=== PATIENT | male | born 1970 | race Caucasian/White ===

== ENCOUNTER 2025-07-04 07:20 | Outpatient (CLI) | payer OTHER, SELFPAY ==
[2025-07-04 14:22] LABS: Hemoglobin A1C 6.5 % (<5.7)
[2025-07-04 14:44] LABS: ALT 36 U/L (16-63); AST 17 U/L (15-37); Albumin 3.8 g/dL (3.4-5.0); Alkaline Phosphatase 64 U/L (46-116); Anion Gap 8.7 mmol/L (3-11); BUN 17 mg/dL (7-18); Bilirubin, Total 0.5 mg/dL (0.2-1.0); CO2 29.3 mmol/L (21.0-32.0); Calcium 9.1 mg/dL (8.5-10.1); Calculated LDL 122 mg/dL (<100); Chloride 104 mmol/L (98-107); Cholesterol 179 mg/dL (<200); Estimated GFR 79.28 (mL/min/1.73m2); Glucose 119 mg/dL (74-106); HDL Cholesterol 38 mg/dL (>or=40); Potassium 4.3 mmol/L (3.5-5.1); Sodium 142 mmol/L (136-145); Total Protein 7.5 g/dL (6.4-8.2); Triglyceride 96 mg/dL (<150); Vitamin D 25 Total 15 ng/mL (30-100)
[2025-07-05 10:56] LABS: PSA, Screening 0.7 ng/mL (<=3.5)
== END 2025-07-04 07:21 | disposition home or self-care (01) ==
LOC: LOS 07-05 07:20
PROVIDERS: PCP Nurse Practitioner Family; Visit Provider Nurse Practitioner Family
DX: Z13.1 Encounter for screening for diabetes mellitus (principal); Z13.220 Encounter for screening for lipoid disorders; Z12.5 Encounter for screening for malignant neoplasm of prostate; I10 Essential (primary) hypertension; E50.9 Vitamin A deficiency, unspecified
CPT/HCPCS: 36415; 80053; 80061; 82306; 84153; 83036

== ENCOUNTER 2025-09-14 08:23 | Day surgery (SDC) | payer OTHER, SELFPAY ==
[2025-09-14 08:44] VITALS: BP 134/99; PULSE 72; RESP 18; TEMP 36.1; O2SAT 96
[2025-09-14] MEDS: Lactated Ringers 1,000 ML 80 ML IV (09:08)
--- NOTE | 2025-09-14 09:33 | W.ANESPRE ---
General Info Date of Service Date Performed: 09/14/25 Height: 5 ft .25 in Weight: 144.9 kg Body Mass Index (BMI): 44.2 Surgical Procedure: Operation Date: 09/14/25 10:05 Proposed Procedure Side Surgeon ravindra Vasquez MD Meds Allergies and Home Medications Allergies Allergy/AdvReac Type Severity Reaction Status Date / Time No Known Allergies Allergy Verified 09/14/25 08:44 Home Medication Medication Instructions Recorded tirzepatide 2.5 mg/0.5 mL 2.5 mg (0.5 mL) subcut QWEEK #2 mL 07/29/25 subcutaneous pen injector (Mounjaro) Current Visit Medications: Current Medications Generic Name Dose Route Start Last Admin Trade Name Freq PRN Reason Stop Dose Admin Ringer's Solution 1,000 mls @ 80 mls/hr 09/14/25 06:00 09/14/25 09:08 IV 09/14/25 23:59 80 mls/hr INFUSION KAREL Administration IV Miscellaneous Supplies 1 each 09/14/25 06:00 Iv Access IV 09/14/25 23:59 DIRECTED KAREL Sodium Chloride 0 ml 09/14/25 06:00 Normal Saline Flush 10 Ml Syr IV 09/14/25 23:59 PRN PRN Sodium Chloride 0 ml 09/14/25 06:00 Normal Saline 10 Ml Vial IJ 09/14/25 23:59 DIRECTED PRN Sterile Water 0 ml 09/14/25 06:00 Water,Injection,Sterile 10 Ml Vial IJ 09/14/25 23:59 DIRECTED PRN PFSH Active Problems Active Problems: Problem Status Onset Code Obesity Chronic E66.9 Skin lesion Acute L98.9 Type 2 diabetes mellitus Acute E11.9 Low back pain Acute M54.50 Left knee pain Acute M25.562 Essential hypertension Acute I10 Sleep apnea Acute G47.30 Surgical History Surgical History History of vasectomy 2003 per patient report. -hb Tobacco Smoking/Tobacco Use Status: Never Passive smoking exposure: Yes Alcohol Alcohol Intake: current Alcohol intake frequency: a few times a week Substance Use Substance use: Never Substance use type: does not use Vital Signs and Lab Results Vital Signs Most Recent Vital Signs in EMR: Most Recent Vital Signs Temp Pulse Resp BP Pulse Ox 36.1 C L 72 18 134/99 H 96 09/14/25 08:44 09/14/25 08:44 09/14/25 08:44 09/14/25 08:44 09/14/25 08:44 Point of Care Results Point of Care Results: Finger Stick Blood Glucose 108 09/14/25 08:37 Anesthesia Assessment and Plan Anesthesia History Personal History: No History of Anesthesia Complications Family History: No Family History of Anesthesia Complications Exercise Tolerance Exercise Tolerance: Metabolic Equivalents>4 Pertinent Negatives Pertinent Negatives: No Symptoms of GERD Cardiac & Pulmonary Exam Cardiac Exam: Normal S1/S2 Heart Sounds Pulmonary Exam: Clear Bilateral Breath Sounds Implantable Cardiac Device Does patient have a Pacemaker or an ICD?: No Airway Exam Known Difficult Airway: No Mallampati Class: 2 Mouth Opening: Normal (> 3cm) Thyromental Distance: Greater than 3 cm Neck Range of Motion: Full ROM Neck Circumference: Normal Teeth Condition: Normal Dentition ASA Classification ASA Score: ASA 2 Emergency Case?: No NPO Status NPO Status: NPO Clears >2 hours, Solids >8 hours Anesthesia Plan Resuscitation Status: Full Code Anesthesia Technique: General Anesthesia Airway Planned: Natural Airway Monitors Used: Standard Monitors Preoperative Comments:: > 8 days from Mounjaro inj
[2025-09-14 09:34] VITALS: BMI 44.2
--- NOTE | 2025-09-14 10:07 | BOWEL_PTH ---
PATIENT: Steven Stiles LOC: [facility] U#:[id number] AGE/SX: 55/M ROOM: RE09/14/[address]: Flores Vasquez : 1970 BED: DIS: 09/14/2025 SPEC #: [id number] RECD: 09/14/25 12:37 STATUS: [facility]WAKU REQ #: [id number] NEHEMIAH: 09/14/25 10:[address]: Flores Vasquez DEPT: Surgical Specimen RECD BY: Cary Arana ENTERED: 09/14/25 12:38 SP TYPE: Bowel OTHR DR: Beto Stevenson, PHARMACY DIRECTOR Tissues: 1 - BIOPSY BOWEL 2 - BIOPSY BOWEL Procedures: GROSS AND MICRO LEVEL 4 Comments: [id number]
[2025-09-14] MEDS: Endoscopic Tattoo 5 ML SYR IJ (10:11)
--- NOTE | 2025-09-14 10:25 | W.PM.DSUDISC ---
Date of service: 09/14/25 Discharge Plan Disposition Patient Disposition: Home Condition: Good Discharge Details Reason For Visit: Screening colonoscopy Attending Provider: Flores Vasquez Primary Care Provider: Beto Stevenson Recommendations for Follow Up Recommended tests to be ordered by follow up provider: Follow up pathology Home Meds and New Rx's Prescriptions: Continued Mounjaro 2.5 mg/0.5 mL pen injector 2.5 mg subcut QWEEK Qty: 2 0RF Rx Instructions: for 4 weeks Discharge Instructions Additional Instructions: Your colonoscopy went well today. You did have a larger polyp that was identified and biopsies and marked in the colon. You also had one additional small polyp that was removed. The pathology from the biopsy and the additional polyp will be sent to pathology. A referral will be made to Gastroenterology for removal of this additional larger polyp. We will contact you once these pathology results return. If you have any questions or concerns please contact the general surgery office. 1. If tolerated, consume a soft, low fiber diet for 1-2 days. 2. Do not drive, drink alcohol, operate machinery, make critical decisions, or do activities that require coordination or balance for 24 hours. 3. Because air was put into your colon during the procedure, expelling air from your rectum (passing gas or farting) is normal. 4. You may not have a bowel movement for 1-3 days because of the colonoscopy prep. This is normal. 5. Go directly to the emergency room if you notice any of the following: Develop chills (warm to touch), or if you have a thermometer and your temperature is above 101 Difficulty breathing or difficultly swallowing Persistent vomiting Severe abdominal pain, other than gas cramps Severe chest pain Black, tarry stools Any bleeding – exceeding one tablespoon 6. Call your physician if the site where your intravenous was started becomes red, swollen, painful, and warm to touch. 7. Your physician has reviewed your pre-procedure medications. Please continue to take those medications as previously ordered. You will be given specific information/education regarding any changes to your medications before leaving. Stand Alone Forms: Anesthesia Discharge Inst., Colonoscopy Post Instructions, Gabo Ramirez (DSU), Portal Information Activity:: Activity as Tolerated Diet:: As Tolerated Discharge Orders Discharge Orders: Discharge Order (Routine); Ordered 09/14/25 Ordered By: Flores Vasquez
[2025-09-14 10:29] VITALS: BP 144/111; PULSE 80; RESP 16; TEMP 36.3; O2SAT 92
--- NOTE | 2025-09-14 10:29 | COLE_ITS ---
Date of service: 09/14/25 Time of Service: 10:29 Colonoscopy Report Date of procedure: 09/14/25 Pre-op diagnosis general: Screening colonoscopy Post-op diagnosis procedure note: other (Colon polyps ) Procedure: Colonoscopy with biopsy and tattoo and polypectomy Surgeon: Flores Vasquez Anesthesia Type: General:No Airway Estimated blood loss (mL): 1 Pathology: other (Colon polyp biopsy at 90cm, polypectomy at 30cm ) Complications: None Disposition: PACU Indications: Patient is a 55 yo male who presents for his first screening colonoscopy. He denies any change in bowel habits or family history of colon cancer. Prep: Miralax/Dulcolax Procedure Start Time: 09:54 Procedure End Time: 10:19 Retraction Time: 12 Findings: Ileocecal valve identified but unable to fully advance into the cecum to identify appendiceal orifice due to significant looping. Evidence of large ascending colon polyp at 90cm semi-pedunculated with irregular base. Biopsy performed and marked with tattoo. Additional polypectomy performed at 30cm with cold forcep biopsy. Procedure Description: The patient was brought to the endoscopy suite and placed in the left lateral decubitus position. After induction of IV sedation, a digital rectal exam was pe rformed. Digital exam was normal. The colonoscope was then passed to the cecum with difficulty due to significant looping. Cecum identified by ileocecal valve but unable to fully advance into cecum to identify appendiceal orifice. Upon withdrawing the colonoscope, all mucosal surfaces were inspected. The prep was noted to be adequate. In the ascending colon at 90cm, there was a large semi-pedunculated polyp with an irregular base that was biopsied and tattoo performed. Additional small polyp at 30cm, which was removed using cold forceps in its entirety. Specimens were retrieved for pathological analysis. Retroflexion in the rectum was unremarkable. The patient tolerated the procedure well with no complications. Postoperatively, the patient was transferred to the recovery room in stable condition. [place] Bowel Prep [place] Bowel Prep Right Colon: 3 Left Colon: 3 Transverse Colon: 3 Total Score: 9
--- NOTE | 2025-09-14 10:59 | W.ANESPOSTOP ---
Postoperative Evaluation Date, Time and Location Date Performed: 09/14/25 Time Performed: 10:59 Patient Location: Day Surgery Unit Vital Signs Most Recent Imported Vital Signs: Most Recent Vital Signs Temp Pulse Resp BP Pulse Ox 36.3 C L 80 16 144/111 H 92 09/14/25 10:29 09/14/25 10:29 09/14/25 10:29 09/14/25 10:29 09/14/25 10:29 Pain Score Most Recent Pain Score: Most Recent Pain Score Pain Level 0 09/14/25 10:29 Assessment Mental Status: Awake (Alert & Oriented to Patient Baseline) Airway and Respiratory Function: Patent airway with normal (patient baseline) respiratory exam Cardiovascular Function: Hemodynamically Stable Hydration Status: Adequately Hydrated Nausea & Vomiting: No Nausea or Vomiting Pain: Pt. Denies Any Pain Peripheral Nerve Block: Patient did not receive a nerve block
[2025-09-14 11:02] VITALS: BP 110/92; PULSE 69; RESP 16; TEMP 36.2; O2SAT 95
== END 2025-09-14 11:13 | disposition home or self-care (01) ==
PROVIDERS: PCP Nurse Practitioner Family; Visit Provider Student in an Organized Health Care Education/Training Program
PROC: 0DJD8ZZ Inspection of Lower Intestinal Tract, Via Natural or Artificial Opening Endoscopic (ICD-10-PCS; CPT 45378; principal; 2025-09-14 10:00)
DX: Z12.11 Encounter for screening for malignant neoplasm of colon (principal); D37.4 Neoplasm of uncertain behavior of colon
CPT/HCPCS: 45380; 45381; 88305; J2003; J2704